=== PATIENT | male | born 1955 | race Caucasian/White ===

== ENCOUNTER 2024-03-07 20:40 | Inpatient (IN) | payer MEDICARE, OTHER, SELFPAY ==
[2024-03-07] VITALS (13 sets, daily range): BP systolic 88–192; BP diastolic 59–131; BMI 34.3; BMI 32.7
--- NOTE | 2024-03-07 17:18 | ED.PDOC.TRB ---
ED Provider Triage
-
Patient seen by provider in Triage?: Seen in Triage
A medical screening examination has been initiated by a qualified medical provider. Based on the assessment performed at this time, it has been determined that an emergent medical condition may exist and the patient has been informed that further
medical evaluation and possible additional diagnostic testing may be needed.
HPI: This is a medical evaluation conducted in person to initiate diagnostic evaluation and provide initial therapeutics. Please see further documentation by the treating clinician.
GENERAL: Alert , in no apparent distress
ENT: No visible abnormalities
LUNGS: No acute respiratory distress
NEUROLOGICAL: Alert and oriented
SKIN: Skin intact. No visible changes.
MUSCULOSKELETAL: Moving extremities normally
PSYCH: Normal and appropriate interaction.
68 y/o M
from PCP office
new onset afib
went to the PCP for exertional dyspnea and faituge
hsa seen dr. asencio previously but w/u has been unremarkable
today ekg in the pcp ioffice is afib
pt has no ches tpain but does have slith ST changes nonspecific
no pleuritic pain
has been having ongoing back pain that is being worked up by rheum
no h/o dvt/pe
will work up with labs, cxr, bnp, ekg
[2024-03-07 17:40] LABS: % Basophils 0.6 % (0-2); % Eosinophils 1.6 % (0-6); % Immature Granulocytes 0.4 % (0-0.5); % Monocytes 9.8 % (1.7-9.3); % Neutrophils 57.6 % (42.2-75.2); Absolute Basophils 0.1 10^3/uL (0-0.2); Absolute Eosinophils 0.2 10^3/uL (0-0.7); Absolute Immature Granulocytes 0.1 10^3/uL (0-0.05); Absolute Lymphocytes 4.2 10^3/uL (1.2-3.4); Absolute Monocytes 1.4 10^3/uL (0.1-0.6); Hematocrit 35.3 % (39.0-52.0); Mean Corp Hgb Conc. 36.8 g/dL (33.0-37.0); Mean Corpuscular Hgb 33.2 pg (27.0-31.0); Mean Corpuscular Volume 90.3 fL (80.0-94.0); Mean Platelet Volume 10.6 fL (7.4-10.4); Nucleated Red Blood Cells % 0 % (-); Platelet Count 358 10^3/uL (130-400); Red Blood Cell Count 3.91 10^6/uL (4.70-6.10); Red Cell Dist. Width 13.2 % (11.5-14.5)
[2024-03-07 17:53] LABS: INR 1.07; PT 13.9 Sec (11.4-14.6)
[2024-03-07 17:54] LABS: APTT 26.4 Sec (23.4-35.0)
[2024-03-07 17:57] LABS: ALT (SGPT) 33 U/L (0-50); AST (SGOT) 27 U/L (17-59); Albumin 4.1 g/dl (3.5-5.0); Alkaline Phosphatase 68 U/L (38-126); Blood Urea Nitrogen 20 mg/dl (9-20); Calcium 10.2 mg/dl (8.4-10.2); Carbon Dioxide 22 mmol/L (22-30); Chloride 104 mmol/L (98-107); Glucose 108 mg/dl (70-99); Magnesium 1.6 mg/dl (1.6-2.3); Potassium 3.3 mmol/L (3.5-5.1); Sodium 141 mmol/L (135-145); Total Bilirubin 0.7 mg/dl (0.2-1.3); Total Protein 6.5 g/dl (6.3-8.2); eGFR > 60.00
[2024-03-07 18:06] LABS: NT-proBNP 3000 pg/ml; Troponin I 0.033 ng/ml
--- NOTE | 2024-03-07 18:19 | ED.GENMED ---
History of Present Illness
General
Chief Complaint: Breathing Problem
Source: patient and spouse
Exam Limitations: none
Time Seen by Provider: 03/07/24 18:02
Nursing documentation reviewed up to this point in time: agreed with
History of Present Illness
History of Present Illness:
68-year-old male presents with shortness of breath fatigue dyspnea on exertion diaphoresis onset at least a week ago maybe longer, also having some sort of joint aches, had some blood work that showed inflammation scheduled to see rheumatology after
rheumatologic testing hypertension followed by Dr. Hoffman no CAD or CHF pulmonary physician is Dr. Lazo
Ex-smoker, social drinker
Past History
Past History
ED Past Medical History: HTN
ED Past Surgical History: Bowel resection
Social History
Tobacco: Former smoker
Alcohol: Occasional
Drug: None
Personal:
Living: with family
Employment: Retired
Review of Systems
Review of Systems
Other source history: family
All Other Systems: Not applicable
Constitutional: Denies fever or fatigue
Respiratory: Reports trouble breathing; Denies cough
Cardiac: Reports diaphoresis; Denies palpitations
ABD/GI: Reports no symptoms
: Reports no symptoms
Musculoskeletal: Reports no symptoms
Skin: Reports no symptoms
Neurological: Reports no symptoms
Endocrine: Reports no symptoms
Hematologic/Lymphatic: Reports no symptoms
Psychiatric: Reports no symptoms
Phy Exam
Physical Exam
Physical Exam:
Physical Exam
General: Tachypneic male
Neck: JVD
Heart: Tachycardic
Lungs: Faint crackle
Abdomen: Not
Neuro: alert and oriented. no focal neurological deficits
Skin: no rash
Psychiatric: well kept. interactive and cooperative
Extremities: 1+
Scores
Heart Failure Risk
Heart Failure Risk Score: Yes
History of Stroke or TIA: No
History of intubation for respiratory distress: No
Heart rate on ED arrival >/= 110: Yes
SaO2 <90% on arrival on room air: No
HR >/=110 during 3min walk test (or too ill to perform test): Yes
ECG has acute ischemic changes: No
Urea >/=12mmol/L (BUN 33.6mg/dL): No
Serum CO2>/=35mmol/L: No
Troponin I or T elevated to OR Level (0.4mg/dL): No
NT-proBNP >/=5,000ng/L (5,000pg/ml): No
HF Risk Score: 2
Admission Status: MEDIUM RISK 9.2% Consider observation or discharge to home with homecare & f/u visit to PCP/[employer], or SNF for treatment
Course
Orders/Labs/Results
Orders:
Orders
03/07/24 Dinner
Cholesterol Lowering
At Your Request: Full Participation
Cholesterol Lowering: Sodium, 2 Gram
03/07/24 17:19
Electrocardiogram (*1) Urgent
Reason for Study: Shortness of Breath
EKG- Treatment ONCE
03/07/24 17:33
Complete Blood Count/With Diff Urgent
Comprehensive Metabolic Panel Urgent
Magnesium Urgent
NT-proBNP Urgent
PTT Urgent
Prothrombin Time Urgent
TSH Reflex To Free T4 Urgent
Troponin I Urgent
03/07/24 18:04
CR Chest Portable - 1 View Urgent
Comment:
Reason For Exam: sob
Reason Study Needs to be Portable: Patient Unstable
03/07/24 18:25
Add On- LAB Urgent
Tests Added?: Magnesium
Diltiazem HCl [Cardizem] 10 mg IV NOW STA
Potassium Chloride [KCl] 40 meq PO NOW STA
03/07/24 18:26
Furosemide [Lasix] 40 mg IV NOW STA
03/07/24 18:30
Diltiazem 125 mg/125 ml Nss [Cardizem] 125 mg in 125 ml IV PER PROTOCOL
Initial dose in mg/hr, then titrate:: 5
Titrate to keep:: Heart rate 80-100 bpm
Titrate by mg/hr:: 5 mg/hr
Frequency of titrations (minutes):: 15
Maximum dose in mg/hr:: 15
03/07/24 19:35
Admit/Transfer Patient As Directed
Co-Sign Provider:
Level of Care: Inpatient admission
Assign to:: IVU
Physician / Group: Hospitalist
Diagnosis: AFIB RVR with new onset CHF
Reason for Hospitalization: AFIB RVR
Expected length of stay greater than two midnights?: Yes
ELOS- Estimated Length of Stay in days: 2
I certify the patient meets the requirements for IP care: Yes
PRN Pain Medication Management As Directed
May give lesser potent ordered pain med per pt: Yes
preference::
Protocol:: Medication orders for pain may be administered in a
manner that supports deferring to patient preference
when the pt is:
- Requesting an ordered lesser potent pain medication.
Least to most potent pain medications are defined
as: acetaminophen < NSAID < tramadol < opioids
(morphine, oxycodone, hydromorphone).
- Requesting a lesser dose of the same medication IF
ORDERED.
- Requesting a less intrusive route of administration
if both routes are prescribed by the provider (PO <
IV).
03/07/24 19:36
Code Status As Directed
Resuscitation Status: Full Code
03/07/24 20:00
Carvedilol [Coreg] 25 mg PO BID
03/07/24 20:57
Apixaban [Eliquis] 5 mg PO BID
Magnesium Sulfate 1 G/D5w [Magnesium Sulfate] 1 gm in 100 ml IV NOW
Potassium Chloride Powder [Klor-Con] 40 meq PO NOW STA
03/07/24 20:57
CARDIOLOGY CONSULT Routine
Consulting Provider: Davide Alvarenga
Was physician already notified: Yes
Reason for consult: afib RVR, new onset CHF
HF DIETARY CONSULT Routine
HF EDUCATOR CONSULT Routine
Comment:
VTE Contraindication Routine
VTE Mechanical Device Contraindication: Medical Contraindication
Pharmocologic Contraindication: Medical Contraindication
Activity As Directed
Activity Level: With Assistance
Intake/ Output As Directed
Frequency: Per unit guidelines
Patient Education As Directed
Type: CHF folder
Comment: give on admission. Document in Interdisciplinary Education record
Sleep Apnea Assessment by RN As Directed
Comment:
Physician Instructions:
Vital Signs As Directed
Frequency: Other
Additional Instructions:: Q12 or per unit guidelines if more frequent.
Weight As Directed
Frequency: Daily
Type of Scale: Standing Scale
Comment: Daily morning weight. If unable to stand, use balanced bed scale.
Weight As Directed
Frequency: Once
Type of Scale: Standing Scale
Comment: Upon Admission. If unable to stand, use balanced bed scale.
Pulse Ox/cont/shift [RESP] Routine
Quantity: 1
Special Instructions: Daily pulse oximetry at rest. If greater than 92% at rest also obtain pulse oximetry
while ambulating as tolerated.
03/07/24 22:00
Atorvastatin [Lipitor] 20 mg PO HS
03/08/24 06:00
Echo 2D MMode Color/Doppler IN AM
Reason for Study: heart failure
NPO
Allow oral meds: Yes
Allow clear liquids: Sips of Clears
Basic Metabolic Panel IN AM
Hemoglobin A1c [Glycohemoglobin (HgbA1c)] IN AM
Magnesium IN AM
03/08/24 08:00
Amlodipine [Norvasc] 10 mg PO DAILY
Furosemide [Lasix] 40 mg IV DAILY
Losartan [Cozaar] 100 mg PO DAILY
03/09/24 06:00
Basic Metabolic Panel IN AM
03/10/24 06:00
Basic Metabolic Panel IN AM
Abnormal Lab Results
03/07/24
17:33
WBC 14.0 H 10^3/uL
(4.8-10.8)
RBC 3.91 L 10^6/uL
(4.70-6.10)
Hct 35.3 L %
(39.0-52.0)
MCH 33.2 H pg
(27.0-31.0)
MPV 10.6 H fL
(7.4-10.4)
Abs Immat Gran (auto) 0.1 H 10^3/uL
(0-0.05)
Absolute Neuts (auto) 8.0 H 10^3/uL
(1.4-6.5)
Absolute Lymphs (auto) 4.2 H 10^3/uL
(1.2-3.4)
Absolute Monos (auto) 1.4 H 10^3/uL
(0.1-0.6)
Monocytes % 9.8 H %
(1.7-9.3)
Potassium 3.3 L mmol/L
(3.5-5.1)
Glucose 108 H mg/dl
(70-99)
03/07/24 17:33
03/07/24 17:33
Vital Signs
Initial and Last Documented VS:
Initial Vital Signs
Temp Pulse Resp BP Pulse Ox
98.2 F 68 20 118/73 99
03/07/24 17:14 03/07/24 17:14 03/07/24 17:14 03/07/24 17:14 03/07/24 17:14
Last Documented Vital Signs
Temp Pulse Resp BP Pulse Ox
97.7 F 133 26 177/92 93
03/07/24 21:00 03/07/24 21:03 03/07/24 21:03 03/07/24 21:03 03/07/24 21:55
MDM/Problems Addressed
Differential Diagnosis Includes:
Rapid A-fib heart failure pneumonia ACS PE
MDM/Problems Addressed:
Shortness of breath tachycardia
Chronic conditions affecting care: HTN and Asthma
Acute Exacerbation and/or Progression of Chronic Illness: HTN and Asthma
*Radiology
Radiology exam reviewed: preliminary read by ED provider
*Pulse Oximetry
Patient hypoxic: no
*EKG
Interpreted by ED Provider?: Yes
Interpretation: abnormal
Comparison EKG: no comparison EKG present
Heart Rate: 140
Rate: tachycardiac
Rhythm: sinus
Ischemia: non-specific ST changes
*Lead Software Engineer Interpretation
Rate: tachycardiac
Interpretation: normal
Heart Rate: 140
Rhythm: a-fib
*Critical Care Note
Total Time (30-74mins, 75-104mins- exclusive of procedures): 30
Update Note
Update Note:
Patient with rapid A-fib at least a week duration suspect he has some degree of volume overload plan be rate control consideration for diuretics likely will require anticoagulation
CRITICAL CARE STATEMENT: A total of 30 minutes of critical care time was provided for this patient. This includes management of unstable vital signs, evaluation of the patient at bedside, reviewing the patient's pertinent medical records discussion
with EMS providers and patient's family in addition to discussion with consultants, review of old EKGs and review of pertinent medical records. This time with separate from time utilized to perform the aforementioned documented procedures
ED Attending Note
-
Portions of this chart may have been created with voice recognition software.� Occasional wrong word or��sound alike� substitutions may have occurred due to the inherent limitations of voice recognition software.
Discharge Plan
Departure
Patient Disposition: Admit
Date of Disposition: 03/07/24
Time of Disposition: 19:08
Admit to: IVU
Presentation/result/management discussed w/ accepting MD/DO: Hospitalist
Patient with high blood pressure during this ER visit?: Yes
Condition: Fair
Discharge Problem:
Atrial fibrillation with RVR
Interventions
Interventions:
*Risk Screen - Suicide Last Done: 03/07/24 17:14
*General Assessment Last Done: 03/07/24 17:14
*Neglect/Abuse Screening Last Done: 03/07/24 17:14
ED- Fall Risk Assessment Last Done: 03/07/24 18:18
*ED COVID-19 Vaccine History Last Done: 03/07/24 21:56
*Nursing Disposition Last Done: 03/07/24 20:46
ED- Cardiac Assessment Last Done: 03/07/24 18:18
ED- Pulmonary Assessment Last Done: 03/07/24 18:18
Discharge Date and Time
Discharge Date/Time: 03/07/24 20:48
[2024-03-07] MEDS: KCL 40 MEQ PO (18:30)
[2024-03-07] MEDS: LASIX 40 MG IV (18:30)
[2024-03-07] MEDS: CARDIZEM 10 MG IV (18:30)
[2024-03-07] MEDS: CARDIZEM 125 IV (18:46)
--- NOTE | 2024-03-07 19:24 | HPS.HSE ---
Family Physician
-
Family Physician:
Chief Complaint
-
Dyspnea exertion and shortness of breath
History of Present Illness
This is a 68-year-old male with past medical history significant for hypertension, asthma, hyperlipidemia presenting to the emergency department with approximately 2 days of increasing dyspnea on exertion and shortness of breath.
Spouse actually reported that the patient has been having symptoms for several months now. She reports that his had increased abdominal bloating and increasing ankle edema for several weeks. Patient himself said that its only the last 4 to 5 days
that is felt dyspneic with his usual walking. He also feels some orthopnea when he lays down. He denies having any chest pain. He denies having any palpitations. He does report feeling slightly dizzy today. Patient denies any significant
changes in his medications recently. He denies any calf pain. He denies any fevers chills or sick contacts.
On arrival in the emergency department the patient was tachycardic to the 150s. He was found to be in atrial fibrillation. He was hypertensive with a blood pressure of 160/70. Was afebrile. Chest x-ray was clear. ECG shows atrial fibrillation
with a rate of 140 without any acute ischemic changes. His troponin was 0.03. His BNP was elevated at 3000. CBC was unremarkable. Chemistries notable for potassium of 3.3 and magnesium of 1.6 but is otherwise unremarkable. Patient had a prior
echo in 2022 which showed moderate left atrial dilation with ejection fraction of 70% and no obvious diastolic dysfunction. No valvular abnormalities at that time as well.
Medical History
Past Medical History
Past Medical History: Reports Asthma, HTN and Hypercholesterolemia
Past Surgical History: Reports None
Additional Past Surgical History:
Polypectomy
Social History
Tobacco: Former Smoker
Alcohol: Daily
Drug: None
Personal:
Living: With Family
Employment: Employed
Family History
Family History: Hypertension
Allergies / Home Medications
Allergies reflects when Allergies were last updated in [employer].
Home Medications with original date entered in [employer]
Allergy/Medication List:
Allergies
Allergy/AdvReac Type Severity Reaction Status Date / Time
No Known Allergies Allergy Verified 03/07/24 17:14
Home Medications
fluticasone propionate 110 mcg/actuation HFA aerosol inhaler (Flovent HFA) 1 puff inhalation R BID ##1 12/10/20
Review of Systems
-
History Source: Patient
Constitutional: Reports No Symptoms
EENT: Reports No Symptoms
Respiratory: Reports Trouble Breathing
Cardiac: Reports No Symptoms
Abdomen/GI: Reports No Symptoms
: Reports No Symptoms
Musculoskeletal: Reports Edema
Skin: Reports No Symptoms
Neurological: Reports No Symptoms
Endocrine: Reports No Symptoms
Hematologic/Lymphatic: Reports No Symptoms
Psych: Reports No Symptoms
Physical Exam
Vital Signs
Vital Signs
Temp Pulse Resp BP Pulse Ox
98.2 F 138 21 164/70 96
03/07/24 17:14 03/07/24 18:30 03/07/24 18:30 03/07/24 18:30 03/07/24 18:30
Physical Exam
General: No Apparent Distress and Comfortable
HEENT: NormoCephalic, Anicteric, Moist mucous membranes and PERRLA
Respiratory: Clear
Cardiac: S1/S2, Irregular Rhythm and Tachycardia
Breast: Deferred by me
GI: Soft, Non Tender, Non Distended and Normal Bowel Sounds
Rectal: Deferred by Provider
Genito-urinary: Deferred by me
Musculoskeletal: No Clubbing, No Cyanosis, Edema, Left Lower Extremity and Edema, Right Lower Extremity
Skin: Warm
Neuro: AO x 3
Hematologic/Lymphatic: No Lymphadenopathy
Psych: Calm
Laboratory Results
-
03/07/24 17:33
03/07/24 17:33
Laboratory Results
PT 13.9 Sec (11.4-14.6) 03/07/24 17:33
INR 1.07 03/07/24 17:33
APTT 26.4 Sec (23.4-35.0) 03/07/24 17:33
Total Bilirubin 0.7 mg/dl (0.2-1.3) 03/07/24 17:33
AST 27 U/L (17-59) 03/07/24 17:33
ALT 33 U/L (0-50) 03/07/24 17:33
Alkaline Phosphatase 68 U/L (38-126) 03/07/24 17:33
Troponin I 0.033 ng/ml 03/07/24 17:33
Data Reviewed
-
Diagnostic Radiology: Image Personally Visualized and interpreted
Medical Tests (Nuc Med, Echo, EKG etc): Image Personally Visualized and interpreted
Lab Data: Labs Reviewed by me
Old Records: Reviewed
Impression/Plan
-
IMPRESSION:
PLAN:
1. AFIB RVR - New onset AFIB RVR. Duration likely > 48 hours and associated with new clinical CHF. Hemodynamically stable. No cardiac ischemia. Currently on diltiazem with rates in the 140s.
- admit to IVU
- continue diltiazem gtt for now
- continue coreg 25mg po bid
- echo in am
- check tsh
- cardiology consult (Pt of Dr. Hoffman)
- keep K, Mag > 4/2
- CHADS2 > 3, start eliquis 5mg
- npo after midnight incase LOBO for possible cardioversion tomorrow.
2. CHF - Mild CHF possibly rate related. BNP 3000. Peripheral edema.
- lasix 40mg iv daily for now
- already on arb
3. HTN
- continue carvedilol and losartan
- continue statin
4. Hyperglycemia - family reports elevated blood glucose at home but no dgx of DM
- check a1c
DVT PPX - on eliquis
Full Code
[2024-03-07 20:17] LABS: TSH Reflex To Free T4 2.07 uIU/ml (0.47-4.68)
[2024-03-07] MEDS: COREG 25 MG PO (20:30)
[2024-03-07] MEDS: LIPITOR 20 MG PO (20:31)
--- NOTE | 2024-03-07 21:00 | PTCARENOTE ---
Patient arrived to room 3353 on 15mg cardizem gtt. Oriented to room and use of call perales. Tele applied showing Afib HR 140-150s. Pt reports feeling shoulder tightness but denies chest pain. reports sob has improved slightly. urinal and tray table at
bedside.
[2024-03-07] MEDS: ELIQUIS 5 MG PO (21:27)
[2024-03-07] MEDS: KLOR-CON 40 MEQ PO (21:27)
[2024-03-07] MEDS: MAGNESIUM SULFATE 100 IV (21:29)
--- NOTE | 2024-03-07 23:42 | PTCARENOTE ---
Report given to JUSTO Smith.
[2024-03-08] VITALS (21 sets, daily range): BP systolic 84–137; BP diastolic 53–99; BMI 32.6
--- NOTE | 2024-03-08 04:05 | PTCARENOTE ---
Patient received in bed, AAOX3, offers no complaints. Afib in 130s-140s on monitor, blood pressure soft, Cardizem gtt infusing at 10 mg/hr. Lungs clear. Abdomen round with positive bowel sounds. Voiding yellow urine. Call perales within reach
[2024-03-08] MEDS: CARDIZEM 125 IV (05:26)
[2024-03-08 06:08] LABS: Blood Urea Nitrogen 16 mg/dl (9-20); Calcium 9.2 mg/dl (8.4-10.2); Carbon Dioxide 20 mmol/L (22-30); Chloride 106 mmol/L (98-107); Estimated Creatinine Clearance 111 ml/min; Glucose 127 mg/dl (70-99); Magnesium 1.6 mg/dl (1.6-2.3); Potassium 3.4 mmol/L (3.5-5.1); Sodium 144 mmol/L (135-145); eGFR > 60.00
--- NOTE | 2024-03-08 07:47 | PTCARENOTE ---
Patient NPO over night. Cardizem currently at 15mg/15 mls via left AC. Cardiology in room with patient awaiting orders.
--- NOTE | 2024-03-08 07:54 | W.PN.HOSP.TC ---
Today's Communication/Plan
-
see A/P
Assessment / Plan
Assessment / Plan
HPI: 68-year-old male with past medical history significant for hypertension, asthma, hyperlipidemia; p/w approximately 2 days of increasing dyspnea on exertion and shortness of breath.
Spouse actually reported that the patient has been having symptoms for several months. She reports that he had increased abdominal bloating and increasing ankle edema for several weeks. Patient himself said that its only the last 4 to 5 days that
is felt dyspneic with his usual walking. He also feels some orthopnea when he lays down. He denies having any chest pain. He denies having any palpitations. He does report feeling slightly dizzy. Patient denies any significant changes in his
medications recently.
On arrival in the emergency department the patient was tachycardic to the 150s. He was found to be in atrial fibrillation. He was hypertensive with a blood pressure of 160/70. Was afebrile. Chest x-ray was clear. ECG shows atrial fibrillation
with a rate of 140 without any acute ischemic changes. His troponin was 0.03. His BNP was elevated at 3000. CBC was unremarkable. Chemistries notable for potassium of 3.3 and magnesium of 1.6 but is otherwise unremarkable. Patient had a prior
echo in 2022 which showed moderate left atrial dilation with ejection fraction of 70% and no obvious diastolic dysfunction. No valvular abnormalities at that time as well.
A/P:
# New onset AFIB RVR.
Hemodynamically stable. No cardiac ischemia.
Cont diltiazem drip for now
Continue PULP AND PAPER TESTER coreg 25mg po bid with hold parameter
Check Echo
TSH 2.07
Cardiology consult (Pt of Dr. Hoffman)
CHADS2 > 3, started eliquis 5mg
NPO for now until lifted by card
# Suspect A fib associated acute new CHF.
BNP 3000. Peripheral edema.
lasix 40mg iv daily for now
Cont PULP AND PAPER TESTER Coreg with hold parameter
PULP AND PAPER TESTER Losartan on hold
echo
# HTN
Cont PULP AND PAPER TESTER Coreg with hold parameter
PULP AND PAPER TESTER Losartan on hold
Currently Cardizem drip
# Hyperglycemia - family reports elevated blood glucose at home but no dgx of DM
Follow A1C
# Hypokalemia
replete lyte
DVT PPX - on Eliquis
Full Code
DW RN
Anticipated Discharge: > 48 hours
Subjective/Interval History
-
Date of Service: March 08, 2024
Objective Data
-
Labs:
Laboratory Results
03/08/24
05:25
Sodium 144
Potassium 3.4 L
Chloride 106
Carbon Dioxide 20 L
BUN 16
Creatinine 0.7
Glucose 127 H
Calcium 9.2
Vital Signs:
Vital Signs
Temp Pulse Resp BP Pulse Ox
36.7 C 147 18 102/78 93
03/08/24 04:54 03/08/24 06:00 03/08/24 06:00 03/08/24 06:00 03/07/24 21:55
I&O
03/07/24 03/08/24 03/09/24
06:59 06:59 06:59
Intake Total 100 / 100
Output Total 950 / 950 300 / 300
Balance -850 / -850 -300 / -300
Review of Systems
-
Respiratory: Reports Trouble Breathing
Physical Exam
-
General: Well Developed, Well Nourished, No Apparent Distress, Comfortable and Conversant; Negative Respiratory Distress
HEENT: Normocephalic, Atraumatic, Nose Appears Normal and Ears Appear Normal; Negative Oxygen
Respiratory: Clear to Auscultation and Non Labored Respirations; Negative Accessory Resp Muscle Use
Cardiac: S1/S2, Irregular Rhythm and Tachycardic
GI: Soft, Nontender, Nondistended and Normal Bowel Sounds
Skin: Warm and Dry
Neuro: Awake, Alert, Oriented and AO x 3
Psych: Calm and Intact Judgement/Insight
Data Reviewed
-
Labs: Labs Reviewed by me
--- NOTE | 2024-03-08 08:00 | CON.CAR ---
Addendum entered and electronically signed by Davide Alvarenga MD 03/08/24 08:31:
Note patient was recently treated for sinus infection and was still on prednisone. Would have been on prednisone 10 mg a day. Will resume. Would refer to both primary team and his outpatient physician regarding full taper of prednisone.
Original Note:
Consultation
Consultation Request
Date/Time Consultation Requested: 03/08/2024
Date/Time Consultation Performed:
Requesting Provider: Hospitalist
Performing Provider: Dr. Alvarenga
Reason for Consultation: New onset A-fib
Medical History
-
History of Present Illness:
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
68-year-old male with history of multidrug hypertension who has had exertional shortness of breath over the last 2 days patient seen in PCP office and noted to be in A-fib with RVR and sent to the emergency department. Patient states that he was
recently treated for a sinus infection completed a course of antibiotics and was on prednisone at 10 mg a day (he did not take his prednisone yesterday or today). Sinus infection has resolved. He was feeling fine until day before yesterday when he
felt like he was a bit more short of breath going up stairs. No shortness of breath at rest no orthopnea lower extremity edema no chest pain no palpitations or heart racing. He has a history of multidrug hypertension and says his blood pressure is
stable he says normally his pulse rate is fine when he checks his pressures. He did not note an elevated heart rate on his blood pressure monitor yesterday but it was noted when he had an ECG at his PCP office.
He has a prior history of smoking and reports that he has a component of asthma
No other lung problems.
No prior history of cardiac disease.
He has a history of hypertension and hypercholesterolemia. No prior history of heart failure, diabetes, CVA, PAD, CAD
No fever cough or respiratory symptoms.
Patient admitted by hospitalist. He was continued on his outpatient Coreg dose and he is placed on IV Cardizem for rate control. He did receive 1 dose of IV Lasix due to question of CHF
Data
chest x-ray 03/27 no acute abnormality.
Labs proBNP 3000 hemoglobin 13 WBC 14 platelets 358 potassiumPotassium 3.4 3.4 bicarbonate 20 glucose 127 creatinine 0.7
Echocardiogram 11/19/2022 normal left ventricular function ejection fraction 70% moderate left atrial dilation no significant valve abnormalities
Past Medical History
Past Medical History: Other (Past medical history multidrug hypertension, asthma, prior history of smoking)
Social History
Tobacco: Former Smoker
Family History
Family History: Other (Negative premature CAD)
Allergies / Home Medications
Allergy/AdvReac Type Severity Reaction Status Date / Time
No Known Allergies Allergy Verified 03/07/24 17:14
�Medication �Instructions �Recorded �Confirmed �Type
amlodipine 10 mg tablet 10 mg PO DAILY 03/07/24 03/07/24 History
aspirin 81 mg chewable tablet 81 mg PO HS 03/07/24 03/07/24 History
atorvastatin 20 mg tablet 20 mg PO HS 03/07/24 03/07/24 History
carvedilol 25 mg tablet 25 mg PO BID 03/07/24 03/07/24 History
losartan 100 1 tab PO DAILY 03/07/24 03/07/24 History
mg-hydrochlorothiazide 25 mg tablet
therapeutic multivitamin 1 tab PO DAILY 03/07/24 03/07/24 History
Review of Systems
-
All other systems: Negative unless noted
Physical Exam
Vital Signs
Temp Pulse Resp BP Pulse Ox
98.1 F 147 18 102/78 93
03/08/24 04:54 03/08/24 06:00 03/08/24 06:00 03/08/24 06:00 03/07/24 21:55
Lab Results
03/07/24 17:33
03/08/24 05:25
Troponin I 0.033 ng/ml 03/07/24 17:33
Utx-V-Ahxvgfckcih Pept 3000 pg/ml 03/07/24 17:33
Physical Exam
General: Well Developed, Well Nourished and No Apparent Distress
HEENT: Normocephalic, Anicteric and Other (Ejection out movements are intact external ear and oral exam unremarkable)
Respiratory: Other (Rare crackle at base)
Cardiac: Irregular Rhythm (Tachycardic.)
GI: Soft, Non Tender and Other (Mildly distended but soft no masses detected no hepatosplenomegaly)
Musculoskeletal: No Clubbing, No Cyanosis and No Edema
Skin: Warm, Dry and Rash (No rash)
Neuro: Awake, Alert, Oriented and AO x 3
Hematologic/Lymphatic: No Lymphadenopathy
Psych: Calm
Impression / Plan
-
A-fib with RVR
-New onset
-Exact duration unknown. Suspect based on symptoms that he has been in A-fib for the last 2 to 3 days
-CHADSVASC -at least 2 based on age greater than 65 and history of hypertension
-Continue Coreg
-Rate control is suboptimal despite IV Cardizem
-Continue IV Cardizem
-Additional bolus of IV Cardizem this morning
-Keep n.p.o.
-Plan for LOBO cardioversion
.
Shortness of breath.
-Comfortable at rest with no shortness of breath on room air
-Shortness of breath with exertion likely related to A-fib with RVR. Patient also did receive some diuretic in ER for possible component of heart failure.
-Continue treatment of A-fib
-Echo
.
Hypertension
-Multidrug hypertension.
-Hypertensive in the ER but blood pressure has improved on current therapy.
-Stop amlodipine with use of Cardizem
-Hold losartan as we give additional rate control drugs. If additional blood pressure control required then losartan can be reinitiated today but may need to reduce the dose
Data Reviewed
-
EKG: Tracing Personally Visualized and interpreted and Report Reviewed by me
Medical Tests (Nuc Med, Echo etc): Report Reviewed by me
Labs: Labs Reviewed by me
[2024-03-08] MEDS: CARDIZEM 10 MG IV (08:21)
[2024-03-08] MEDS: COREG 25 MG PO ×2 (08:22→19:53)
[2024-03-08] MEDS: ELIQUIS 5 MG PO ×2 (08:22→19:53)
[2024-03-08] MEDS: MAGNESIUM SULFATE 102 GRAMS IV (08:49)
[2024-03-08 09:18] LABS: Glycohemoglobin (HgbA1c) 6.6 % (4.0-5.6)
[2024-03-08] MEDS: KCL 270 MEQ IV (09:50)
[2024-03-08] MEDS: DELTASONE 10 MG PO (09:50)
--- NOTE | 2024-03-08 11:32 | ITS.CL.CARDI ---
Compensation Business Partner - Cardioversion
Cardioversion
Procedure Report:
Date of Procedure:
Procedure: Cardioversion
Indication: Symptomatic atrial fibrillation
Performing Physician: Jovanni Faustin MD
Technique: The patient was brought to the holding area. Signed informed consent was obtained. A time out was called and performed. The patient was anesthetized by the anesthesia service. Anticoagulation status was reviewed and appropriate. R2 pads
were placed anteriorly and posteriorly. After LOBO revealed no LA thrombus, a 200 J synchronized biphasic shock restored normal sinus rhythm without significant bradycardia. There were no complications.
Conclusion: Uncomplicated cardioversion from atrial fibrillation to sinus rhythm.
Recommendation: Routine post cardioversion care. Continue retirement anticoagulation.
[2024-03-08] MEDS: LASIX 40 MG IV (16:45)
[2024-03-08] MEDS: LIPITOR 20 MG PO (19:53)
[2024-03-08] MEDS: KCL 40 MEQ PO (19:53)
--- NOTE | 2024-03-08 20:00 | PTCARENOTE ---
Patient received in bed, AAOx3. NSR on monitor, Trace lower extremity edema noted. Lungs diminished, on room air. Abdomen round, good appetite. Voiding. #20 g in LAC and #20 LFA flushed and patent.
[2024-03-09 05:11] VITALS: BP 142/78
[2024-03-09 05:14] VITALS: BMI 32.7
[2024-03-09 06:18] LABS: Blood Urea Nitrogen 21 mg/dl (9-20); Calcium 9.1 mg/dl (8.4-10.2); Carbon Dioxide 23 mmol/L (22-30); Chloride 105 mmol/L (98-107); Estimated Creatinine Clearance 97 ml/min; Glucose 133 mg/dl (70-99); Magnesium 1.7 mg/dl (1.6-2.3); Potassium 3.6 mmol/L (3.5-5.1); Sodium 141 mmol/L (135-145); eGFR > 60.00
[2024-03-09 06:19] LABS: Hematocrit 33.3 % (39.0-52.0); Mean Corpuscular Volume 94.3 fL (80.0-94.0); Mean Platelet Volume 10.5 fL (7.4-10.4); Platelet Count 281 10^3/uL (130-400); Red Blood Cell Count 3.53 10^6/uL (4.70-6.10); Red Cell Dist. Width 13.2 % (11.5-14.5); White Blood Cell Count 12.8 10^3/uL (4.8-10.8)
--- NOTE | 2024-03-09 07:44 | W.PN.HOSP.TC ---
Addendum entered and electronically signed by Soha Young MD 03/09/24 12:06:
total DC time 36 min
Original Note:
Today's Communication/Plan
-
see A/P
Assessment / Plan
Assessment / Plan
HPI: 68-year-old male with past medical history significant for hypertension, asthma, hyperlipidemia; p/w approximately 2 days of increasing dyspnea on exertion and shortness of breath.
Spouse actually reported that the patient has been having symptoms for several months. She reports that he had increased abdominal bloating and increasing ankle edema for several weeks. Patient himself said that its only the last 4 to 5 days that
is felt dyspneic with his usual walking. He also feels some orthopnea when he lays down. He denies having any chest pain. He denies having any palpitations. He does report feeling slightly dizzy. Patient denies any significant changes in his
medications recently.
On arrival in the emergency department the patient was tachycardic to the 150s. He was found to be in atrial fibrillation. He was hypertensive with a blood pressure of 160/70. Was afebrile. Chest x-ray was clear. ECG shows atrial fibrillation
with a rate of 140 without any acute ischemic changes. His troponin was 0.03. His BNP was elevated at 3000. CBC was unremarkable. Chemistries notable for potassium of 3.3 and magnesium of 1.6 but is otherwise unremarkable. Patient had a prior
echo in 2022 which showed moderate left atrial dilation with ejection fraction of 70% and no obvious diastolic dysfunction. No valvular abnormalities at that time as well.
A/P:
# New onset AFIB RVR.
Hemodynamically stable. No cardiac ischemia.
s/p diltiazem drip
s/p LOBO cardioversion 03/08 with successful conversion to NSR
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
TSH 2.07
CHADS2 > 3, continue newly added Eliquis 5mg BID
# Suspect A fib associated acute new CHF.
BNP 3000. Peripheral edema.
Off further IV Lasix
Cont OYSTER UNLOADER Coreg with hold parameter
Off OYSTER UNLOADER Losartan
# HTN
BP controlled with Coreg
# Hyperglycemia - family reports elevated blood glucose at home but no dgx of DM
A1C 6.6%
recc lifestyle modification
# Hypokalemia
repleted lyte
# recently treated for sinus infection with prednisone (per pt, he was prescribed a 90 day supply of prednisone by his PCP)
# Mild leucocytosis likely due to steroid
Cont Prednisone 10 mg daily until further directed by his PCP
DVT PPX - on Eliquis
Full Code
DW RN
DW Card
Anticipated Discharge: Today
Subjective/Interval History
-
Date of Service: March 09, 2024
Objective Data
-
Labs:
Laboratory Results
03/09/24
05:45
WBC 12.8 H
Hgb 12.0 L
Hct 33.3 L
Plt Count 281 D
Sodium 141
Potassium 3.6
Chloride 105
Carbon Dioxide 23
BUN 21 H
Creatinine 0.8
Glucose 133 H
Calcium 9.1
Vital Signs:
Vital Signs
Temp Pulse Resp BP Pulse Ox
36.8 C 70 17 142/78 92
03/09/24 05:11 03/09/24 05:11 03/09/24 05:11 03/09/24 05:11 03/09/24 05:11
I&O
03/08/24 03/09/24 03/10/24
06:59 06:59 06:59
Intake Total 100 / 100 1263 / 1263
Output Total 950 / 950 2400 / 2400
Balance -850 / -850 -1137 / -1137
Review of Systems
-
All other systems: Reviewed and negative
Physical Exam
-
General: Well Developed, Well Nourished, No Apparent Distress, Comfortable and Conversant; Negative Respiratory Distress
HEENT: Normocephalic, Atraumatic, Nose Appears Normal and Ears Appear Normal; Negative Oxygen
Respiratory: Clear to Auscultation and Non Labored Respirations; Negative Accessory Resp Muscle Use
Cardiac: Regular Rhythm and S1/S2
GI: Soft, Nontender, Nondistended and Normal Bowel Sounds
Skin: Warm and Dry
Neuro: Awake, Alert, Oriented and AO x 3
Psych: Calm and Intact Judgement/Insight
Data Reviewed
-
Labs: Labs Reviewed by me
[2024-03-09 07:46] VITALS: BP 137/71
[2024-03-09] MEDS: COREG 25 MG PO (07:49)
[2024-03-09] MEDS: DELTASONE 10 MG PO (07:49)
[2024-03-09] MEDS: ELIQUIS 5 MG PO (07:49)
[2024-03-09] MEDS: KCL 40 MEQ PO (08:35)
--- NOTE | 2024-03-09 09:03 | W.PN.CD ---
Today's Communication / Plan
-
stable and remains in NSR post LOBO/CV
Ambulate in hallway this morning to see that his breathing is returned to baseline
Continue Eliquis 5mg BID
continue Coreg
-Stop amlodipine
- start Cardizem 120mg a day
- monitor blood pressures and as BP increases can resume losartan at lower dose.
Impression / Plan
-
A-fib with RVR
-New onset
-Exact duration unknown. Suspect based on symptoms that he has been in A-fib for the last 2 to 3 days
-CHADSVASC -at least 2 based on age greater than 65 and history of hypertension
-successful LOBO cardioversion 03/08/24
.
Shortness of breath.
-Denies shortness of breath. Ambulated ambulate this morning to see that his breathing has returned to baseline.
-Suspect he had a component of shortness of breath related to rapid rates of A-fib but also a component of HFpEF related to rapid A-fib
- will plan for outpatient stress testing
.
Hypertension
-Multidrug hypertension.
-Hypertensive in the ER but blood pressure has improved on current therapy.
-Stopped amlodipine
- start Cardizem 120mg a day
- monitor blood prressures and as BP increases can resume losartan
Physical Exam
Vital Signs/Labs
Vital Signs
Temp Pulse Resp BP Pulse Ox
98.0 F 68 17 137/71 92
03/09/24 07:40 03/09/24 07:49 03/09/24 05:11 03/09/24 07:49 03/09/24 05:11
03/08/24 03/09/24 03/10/24
06:59 06:59 06:59
Actual Weight 97.3 kg 97.6 kg
03/09/24 05:45
03/09/24 05:45
PT 13.9 Sec (11.4-14.6) 03/07/24 17:33
INR 1.07 03/07/24 17:33
APTT 26.4 Sec (23.4-35.0) 03/07/24 17:33
Magnesium 1.7 mg/dl (1.6-2.3) 03/09/24 05:45
03/07/24
17:33
Xgt-D-Dcvhdcfzyvk Pept 3000
LAB Results
03/07/24
17:33
Troponin I 0.033
Physical Exam
Constitutional: No acute distress
Cardiovascular: Rhythm & rate is regular
Respiratory: Respiratory effort normal
GI: Distention absent and Normal bowel sounds
Neuro/Psych: Alert, Oriented and AO x 3
Data Reviewed
-
Date of Service: March 09, 2024
Medical Decision Making: Reviewed Test Results
Echo: Report Reviewed by me
Medical Tests (PFT, Pathology etc): Report Reviewed by me
Labs: Labs Reviewed by me
--- NOTE | 2024-03-09 09:23 | CM ---
Patient with Dx Afib with RVR who is s/p cardioversion.
Met with patient who resides with his in a 2 story house.
The patient has been independent in ADLs and ambulation.
He is active and drives.
The patient has no DME, prior VN or SNF.
PCP - Lily Hayward
Pharmacy - [facility]
VN order noted- offered VN and patient declined.
The patient says he feels ready for d/c today. IMM completed. His will provide transport home today.
No CM d/c needs identified.
Plan home today.
[2024-03-09] MEDS: CARDIZEM CD 120 MG PO (09:49)
[2024-03-09 09:50] VITALS: BP 119/70
--- NOTE | 2024-03-09 10:38 | W.HF.CON ---
Heart Failure
- LV Function
Left ventricular function study result: LV Ejection fraction >40%
Ejection Fraction Percentage: 55
- ARNI
Patient already on ARNI: No
Heart Failure ARNI Not Indicated: LV Ejection Fraction >/= 40%
- Beta Susu
Patient already on Evidence Based Beta Susu: Yes
- Mineralocorticord Receptor Antagonist
Patient already on MRA: No
Heart Failure MRA Not Indicated: LV Ejection Fraction > 40%
- SGLT-2 Inhibitor
Patient already on SGLT-2 Inhibitor: No
Heart Failure SGLT-2 Inhibitor Not Indicated: LV Ejection Fraction >40%
- Afib Anticoagulation
Patient already on Anticoagulation for Afib: Yes
- NYHA CHF Classification
NYHA CHF Classification Level: Class III - Symptoms w/ min exertion, interferes w/ nml daily activity
- ACC/AHA Stage
ACC/AHA Stage: Stage C: Symptomatic Heart Failure
--- NOTE | 2024-03-09 11:02 | W.DCSUMMARY ---
Discharge Summary
Discharge Data
Date of Admission: 03/07/24
Date of Discharge: 03/09/24
-
Pending Results: No
Hospital Course
Principal Diagnosis:
New onset atrial fibrillation with rapid ventricular rate.
Mild atrial fibrillation associated heart failure
Chronic Diagnoses:�
Hypertension
asthma
Hyperlipidemia
Recent sinus infection on prednisone
Consultations:�
Cardiology
Procedures:�
LOBO with cardioversion 03/08 with successful conversion to NSR
Clinical course:�
This is a 68-year-old male with past medical history as stated above, who presented with shortness of breath and dyspnea on exertion.
He was noted to be in A-fib RVR on admission.
Problem 1:
New onset atrial fibrillation with rapid ventricular rate.
Patient was hemodynamically stable.
Cardizem drip was initially started which was later discontinued.
He underwent LOBO/cardioversion on 03 08 which successfully converted him to normal sinus rhythm.
He can continue with his prior to admission Coreg at 25 mg twice daily.
Cardizem 120 mg daily was added this admission which he can continue going forward.
His prior to admission losartan was discontinued.
He was started with Eliquis 5 mg twice daily which she can also continue going forward.
Problem 2:
Suspect A fib associated mild CHF.
BNP 3000.
He received IV Lasix very briefly.
As for the rest of his medical problems, they were stable during his hospital stay.
Discharge Plan
-
Patient Disposition: Home with Home Care
Discharge Diagnosis/Procedures: New onset atrial fibrillation status post LOBO and cardioversion 03/08 with successful conversion to normal sinus rhythm.
Condition: Good
Diet: As tolerated, Low Fat, Low Cholesterol and Low Sodium
Activity: As tolerated
Driving Restrictions: As prior to admission
Blood Work: follow up with your PCP for blood pressure management
Specialty Instructions: Weigh Daily- Call MD for wt gain/loss 3 lbs overnight/5 lbs in 1 week
Instructions: *CBC Heart Failure Instructions
Referrals:
Lily Hayward MD [Family Provider] - in less than 1 week
Additional Discharge Medication Instructions: You were started with Cardizem 120 mg daily.
You were started with Eliquis (blood thinner) at 5 mg twice daily.
Stop Aspirin while on Eliquis.
Stop losartan-HCTZ
Stop amlodipine
Prescriptions:
New
prednisone 10 mg Tablet
10 mg PO DAILY Qty: 30 0RF
Eliquis 5 mg Tablet
5 mg PO BID Qty: 60 0RF
diltiazem HCl 120 mg Capsule,Extended Release 24hr
120 mg PO DAILY Qty: 30 0RF
Continued
carvedilol 25 mg Tablet
25 mg PO BID
atorvastatin 20 mg Tablet
20 mg PO HS
therapeutic multivitamin Tablet
1 tab PO DAILY
Discontinued
losartan-hydrochlorothiazide 100-25 mg Tablet
1 tab PO DAILY
amlodipine 10 mg Tablet
10 mg PO DAILY
aspirin 81 mg Tablet,Chewable
81 mg PO HS
Discharge Orders:
Discharge Patient (As Directed); Ordered 03/09/24
Ordered By: Soha Young
Discharge Date and Time
Print Language: AUSTRIAN
[2024-03-09 12:09] VITALS: BP 132/74
== END 2024-03-09 14:40 | disposition home or self-care (01) | DRG 291 ==
LOC: IMU 20:40
PROVIDERS: Internal Medicine Cardiovascular Disease; Physician Assistant; ADMITTING PHYSICIAN Internal Medicine; ATTENDING PHYSICIAN Internal Medicine; CONSULT PHYSICIAN Internal Medicine Cardiovascular Disease; EMERGENCY PHYSICIAN Emergency Medicine; FAMILY PHYSICIAN Internal Medicine
PROC: B24BZZ4 Ultrasonography of Heart with Aorta, Transesophageal (ICD-10-PCS; 2024-03-08)
PROC: 5A2204Z Restoration of Cardiac Rhythm, Single (ICD-10-PCS; 2024-03-08)
DX: I11.0 Hypertensive heart disease with heart failure (principal); I50.31 Acute diastolic (congestive) heart failure; I48.91 Unspecified atrial fibrillation; Z87.891 Personal history of nicotine dependence; J45.909 Unspecified asthma, uncomplicated; E87.6 Hypokalemia
CPT/HCPCS: 71045; 80048; 80053; 83036; 83735; 83880; 84443; 84484; 85025; 85027; 85610; 85730; 92960; 93005; 93312; 93320; 93325; 96365; 96366; 96375; 99291

== ENCOUNTER 2024-04-12 07:35 | Day surgery (SDC) | payer MEDICARE, OTHER, SELFPAY ==
[2024-04-03 08:02] VITALS: BMI 32.7
[2024-04-12] VITALS (17 sets, daily range): BP systolic 148–176; BP diastolic 74–85; BMI 31.9
[2024-04-12 08:45] LABS: Glucose - Point of Care 128 mg/dl (70-99)
--- NOTE | 2024-04-12 13:48 | ITS.CL.ABL ---
Special Loan Officer - Ablation
Ablation
Procedure Report:
AFIB ablation:
Mr. Canales is a very pleasant 68 yr old gentleman with symptomatic paroxysmal AF, is recommended for atrial fibrillation ablation.
Date of the Procedure:
04/12/2024
Indications:
Paroxysmal atrial fibrillation
Pre-Operative Diagnosis:
Paroxysmal atrial fibrillation
Post-Operative Diagnosis:
Paroxysmal atrial fibrillation
Procedure Performed:
Atrial fibrillation ablation with Pulsed-Field approach for pulmonary vein isolation
Performing Physician:
Andrea Guerrero MD
Assistants:
EP staff
Anesthesia:
See anesthesia records
Detailed Description of the Procedure:
Written informed consent was obtained from the patient after a full explanation of the risks and benefits of the procedure including the risks of sedation and anesthesia.
The patient was brought to the electrophysiology laboratory in stable condition in fasting state. Continuous electrocardiographic and hemodynamic monitoring was initiated.
The initial rhythm was sinus.
The procedure site was meticulously prepared with surgical scrub and allowed to dry with no pooling. Sterile draping was applied to cover the procedure site. The image intensifier was draped with sterile bag and positioned over the patient. After
infusion of local anesthetic, vascular access was obtained under ultrasound guidance and sheaths were placed over guide wire as detailed below.
Sheath and Catheter Placement:
The following catheters / sheaths were placed
Sheaths:
��������� 17Fr steerable sheath ([employer]�, [employer]) in right femoral
��������� 10Fr in right femoral vein
��������� 7Fr in right femoral vein
Catheters:
��������� RAMON HD Grid mapping catheter � at locations of RA, LA
��������� Farawave� PFA catheter
��������� ICE catheter �Delgado ViewFlex - at locations of RA, SVC, and RV.
��������� Decapolar Bard catheter in RA and CS
Intracardiac ECHO:
An 8-[place] AcuNav intracardiac ECHO (ICE) probe was advanced through the 9-[place] sheath in the right femoral vein into the right atrium under fluoroscopic and ICE ultrasound image guidance and a baseline ECHO study was performed. The left atrial
size was normal. There was moderate tricuspid regurgitation. The aortic valve was grossly normal. There was normal left ventricular systolic functions. There is no pericardial effusion. All the four veins were identified and has flow identified.
There was good flow noted in the JOHN PAUL.
During the procedure, ICE was used for monitoring of complications, guidance of trans-septal puncture, monitor the catheter position and tracking ablation lesions. No change in the pericardial space noted throughout the procedure.
Trans-septal Puncture:
Heparin was initiated and infused to maintain appropriate ACT. A pigtail guidewire was advanced through the 8-[place] sheath in the right femoral vein into the superior vena cava under fluoroscopic and ICE guidance. The 9-[place] sheath was exchanged
for a Faradrive sheath which was advanced into the superior vena cava. A transseptal RF pigtail via Faradrive connect system was utilized to perform the trans-septal puncture. The apparatus was withdrawn until it was in contact with the fossa
ovalis. The position was adjusted based on fluoroscopy and ultrasound images from ICE. Under fluoroscopic, hemodynamic and ICE ultrasound guidance, left atrium was cannulated by applying RF energy. Once atrial septum was cannulated, the pigtail wire
was advanced through the needle into the left atrium. The guide wire was advanced into the left superior pulmonary vein. Both the sheath and the dilator was advanced into the left atrium. The dilator with the needle was withdrawn. Blood was
aspirated from the Faradrive sheath and arterial blood confirmed. The sheath was flushed. Saline injection noted into the left atrium on ICE. The mapping catheter was advanced in the sheath into the left pulmonary vein. Left atrial pressure was
measured.
3D Electroanatomic Mapping:
Using the HD Grid catheter advanced through sheath into the left atrium, an electroanatomic map (EAM) of the left atrium was created using Scan•Jour mapping system. The map was used for localization of catheter position and tacking of ablation
lesions.
The EAM of the left atrium showed 4 pulmonary veins with all 4 veins electrically connected to the body the LA. It showed normal voltage on the posterior and anterior wall of the LA. The LA was mildly dilated in size.
Following the EAM, preparation were made for ablation.
Ablation:
Ablation # 1: Pulmonary vein Isolation:
Glycopyrrolate 0.2 mg was given prior to the placement of ablation. Using [employer] pulsed wave ablation system, pulmonary vein isolation was achieved. First the ablation catheter was placed in the LSPV and ostial ablation lesions were performed in a
counter clock randall approach all around the PV ostium circumferentially. Then the catheter was placed on the antral location and multiple ablation lesions were placed circumferentially on the antrum of the vein.
In the similar fashion, the LIPV were isolated.
Then the catheter was moved to right sided veins. The ostial and antral ablations were placed as noted above.
EPS and Confirmation of the PVI and bidirectional block:
Following achievement of entrance block at the pulmonary veins, pacing from the HD catheter in each of the four veins at 10 milliamps for 2 milliseconds showed entrance and exit block. All PVI were rechecked at the end of the case and remained
isolated. Entrance and exit block were demonstrated in all veins.
Post ablation Electroanatomic mapping:
Once ablation was completed, the EAM of the LA was done again in sinus rhythm with excellent demarcation of LA myocardium and isolated antral tissue. There was no significant scarring noted in the LA.
The JOHN PAUL had healthy signals and was not isolated.
Procedure End
ICE study was done again that showed no epicardial accumulation. No complications noted.
Following the completion of the EP study, catheters were removed.
(Patient had a hx of Vasectomy and Protamine was not given). The sheaths were removed and hemostasis achieved with VASCADE and manual compression after acceptable ACT is achieved.
Left atrial Pressure:
Mean LA pressure was 11mmHg
Estimated Blood loss:
<10 cc
Specimens Removed:
None.
Implants / Devices:
None
Urine output:
None
Packs / Drains/ Tubes:
None
Instrument / Sponge Count Correct:
Yes
Complications of the Procedure:
None
Condition of Patient at Time of Transfer:
Hemodynamically stable with no neurological or vascular compromise.
Summary:
Successful atrial fibrillation ablation with Pulsed Field approach for pulmonary vein isolation.
Figures from the Procedure:
Figure 1: The electroanatomic mapping (EAM) of the left atrium with bipolar voltage (purple indicates normal electrical activity with mckenzie as no myocardial muscle electric activity indicating a line of block or scar.
[2024-04-12 15:03] LABS: Glucose - Point of Care 138 mg/dl (70-99)
--- NOTE | 2024-04-12 16:16 | CM ---
Reviewed chart. Met with Mr. Canales to review discharge plans. He states prior to admission he resides with his spouse in a two story home without any step to enter. He states he has a bedroom/full bathroom on each level. He states prior to
admission he was independent with ambulation and adls. He states he does not have nay DME but a Blood pressure machine. He states he has a prescription plan and uses [facility]. The discharge plan is to return home with his spouse when
medically stable.
[2024-04-12] MEDS: TYLENOL 650 MG PO ×2 (17:00→23:14)
--- NOTE | 2024-04-12 19:03 | PTCARENOTE ---
Pt received post ablation. Telemetry shows sinus rhythm @80's, SBP 140-160. Right femoral vein site with dry and intact dressing, no sign of bleeding or hematoma. Pt OOB after bedrest ended without problem. Pt passing urine well.
[2024-04-12] MEDS: ELIQUIS 5 MG PO (19:59)
[2024-04-12] MEDS: COREG 25 MG PO (19:59)
[2024-04-12] MEDS: LIPITOR 20 MG PO (23:06)
[2024-04-12] MEDS: ANESTHETIC LOZENGE 1 LOZENGE PO (23:14)
--- NOTE | 2024-04-13 00:35 | PTCARENOTE ---
Pt received at change of shift. Sinus Arrhythmia on tele with HR 70s-90s. R groin site c/d/i with no sign of hematoma. Pt endorses headache 3/10, Tylenol administered per order. Ambulating independently in room without difficulty. Plan of care
discussed and pt. verbalizes understanding. Can make needs known. Call perales within reach.
[2024-04-13 03:57] VITALS: BP 135/63
[2024-04-13 04:32] LABS: Hematocrit 33.3 % (39.0-52.0); Hemoglobin 12.2 g/dL (13.0-18.0); Mean Corp Hgb Conc. 36.6 g/dL (33.0-37.0); Mean Corpuscular Hgb 33.6 pg (27.0-31.0); Mean Corpuscular Volume 91.7 fL (80.0-94.0); Mean Platelet Volume 11.6 fL (7.4-10.4); Platelet Count 284 10^3/uL (130-400); Red Blood Cell Count 3.63 10^6/uL (4.70-6.10); Red Cell Dist. Width 13.2 % (11.5-14.5); White Blood Cell Count 12.3 10^3/uL (4.8-10.8)
[2024-04-13 05:05] LABS: Blood Urea Nitrogen 17 mg/dl (9-20); Calcium 9.2 mg/dl (8.4-10.2); Carbon Dioxide 21 mmol/L (22-30); Chloride 103 mmol/L (98-107); Estimated Creatinine Clearance > 125 ml/min; Glucose 171 mg/dl (70-99); Magnesium 1.7 mg/dl (1.6-2.3); Potassium 4.6 mmol/L (3.5-5.1); Sodium 136 mmol/L (135-145); eGFR > 60.00
[2024-04-13 07:40] VITALS: BP 132/54
[2024-04-13] MEDS: NORVASC 5 MG PO (08:40)
[2024-04-13] MEDS: DIOVAN 320 MG PO (08:40)
[2024-04-13] MEDS: ALDACTONE 25 MG PO (08:41)
[2024-04-13] MEDS: ORETIC PO (08:41)
[2024-04-13] MEDS: COREG 25 MG PO (08:41)
[2024-04-13] MEDS: ELIQUIS 5 MG PO (08:41)
[2024-04-13] MEDS: ORETIC 25 MG PO (08:43)
--- NOTE | 2024-04-13 09:40 | W.PN.CARDCBS ---
Addendum entered and electronically signed by Kameron Gerardo MD 04/13/24 10:28:
Patient seen and examined in collaboration with BEAM SAW OPERATOR; agree with below.
-Patient stable status-post PVI yesterday.
-Medication adjustments as per primary EP Media Planner.
-Plan to discharge to home today; outpatient follow-up with cardiology.
Original Note:
Today's Communication / Plan
-
STOP diltiazem, losartan, hydralazine
START amlodipine, valsartan/hct
monitor bp
if stable, d/c home
Impression / Plan
-
PCP: Anahi Hayward MD
CDY: Mynor Hoffman MD
68 y/o, PMH sig for recurrent symptomatic PAF. [id number], maintained on eliquis. Also with uncontrolled HTN and intolerant to hydralazine d/t headaches.
Presented to EP lab, now s/p PFA.
IMPRESSION:
PAF, s/p PFA, 04/12/24
Uncontrolled HTN
PreDM
Asthma
HLD
Bladder CA (2004)
PLAN:
Groin site stable
Tele- NSR w/PACs, 70s
OOB ambulating
Eliquis resumed last evening
BP modestly elevated 150-170s since arrival
will stop diltiazem, losartan, and hydralazine
New start amlodipine 5mg/d and valsartan/HCT 320/25mg daily
first doses today- will monitor BP after and if stable will continue at home
Followup at [facility] arranged
home today if BP stable
Progress Note - Media Planner
Subjective
Date of Service: April 13, 2024
Denies cp/palps/dyspnea
oob ambulating
groin site without pain
Objective
Labs:
04/13/24 03:57
04/13/24 03:57
Labs
Hgb 12.2 g/dL (13.0-18.0) L 04/13/24 03:57
Hct 33.3 % (39.0-52.0) L 04/13/24 03:57
Plt Count 284 10^3/uL (130-400) 04/13/24 03:57
Sodium 136 mmol/L (135-145) 04/13/24 03:57
Potassium 4.6 mmol/L (3.5-5.1) 04/13/24 03:57
BUN 17 mg/dl (9-20) 04/13/24 03:57
Creatinine 0.6 mg/dL (0.7-1.3) L 04/13/24 03:57
Glucose 171 mg/dl (70-99) H 04/13/24 03:57
Vital Signs and I&O:
Vital Signs
Temp Pulse Resp BP Pulse Ox
98 F 79 20 132/54 96
04/13/24 07:41 04/13/24 08:40 04/13/24 07:41 04/13/24 08:40 04/13/24 07:41
Vital Signs
Temp Pulse Resp BP Pulse Ox
98 F 79 20 132/54 96
04/13/24 07:41 04/13/24 08:40 04/13/24 07:41 04/13/24 08:40 04/13/24 07:41
Intake & Output
04/11/24 04/12/24 04/13/24 04/14/24
06:59 06:59 06:59 06:59
Intake Total 1460 / 1460 480 / 480
Balance 1460 / 1460 480 / 480
Physical Exam
Physical Exam
AAOx3, MAEE 5/5
RRR S1 S2 no murmurs
CTA bilat, non labored
soft abd, + bs
right groin site without ht/bleeding, non tender
bilat extremities w/palpable distal pulses, no edema
--- NOTE | 2024-04-13 11:13 | PTCARENOTE ---
RN and AUTO MECHANICS INSTRUCTOR reviewed patients new medication regimen with patient at the bedside. Pt may go home this afternoon if blood pressures remain within normal limits. Patient cath site c/d/i. Call perales within reach.
[2024-04-13 11:18] VITALS: BP 152/64
[2024-04-13 11:45] VITALS: BP 156/71
--- NOTE | 2024-04-13 11:48 | W.DS.TRANS ---
Addendum entered and electronically signed by CM Marsh 04/13/24 12:40:
ADDENDUM: carvedilol incorrectly entered during initial med reconciliation.
correct dose of carvedilol is 12.5mg BID.
adjusted in home med rec.
Original Note:
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
-
Discharge Instructions:
Discharge Diagnosis/Procedures Afib post ablation
Diet Low Cholesterol,Low Sodium
Driving Restrictions No driving for 24 hours
Instructions:
Stand-Alone Forms: DC Instructions- Cath/EP Lab
Changes to Home Medications: Yes
Discharge Medications:
DC Medications w/original date entered in [employer]
atorvastatin 20 mg tablet 20 mg PO HS High Cholesterol 03/07/24
carvedilol 25 mg tablet 25 mg PO BID Blood Pressure 03/07/24
therapeutic multivitamin 1 tab PO DAILY Supplement 03/07/24
apixaban 5 mg tablet (Eliquis) 5 mg PO BID #60 tabs 03/09/24
fluticasone propionate 110 mcg/actuation HFA aerosol inhaler 110 mcg inhalation DAILY 04/12/24
spironolactone 25 mg tablet 25 mg DAILY 04/12/24
amlodipine 5 mg tablet 5 mg PO DAILY #90 tabs 04/13/24
valsartan 320 mg-hydrochlorothiazide 25 mg tablet 1 tab PO DAILY #90 tabs 04/13/24
Home Medication Changes
STOP diltiazem, losartan, hydralazine
START amlodipine, valsartan/hct
Pending Results: No
--- NOTE | 2024-04-13 13:00 | PTCARENOTE ---
Pt seen by and Dominique Jones, KADY. BP medications changed, pt has monitor at home to continue recording values. Discharge instructions reviewed with pt and his regarding medications and their possible side effects, wound care, activity
and driving guidelines, reporting cares and concerns and follow up appts. Excellent understanding taught back to this RN. Carvedilol order changed to 12.5mgs BID as previously, per Dominique Jones, KADY. Telemetry and IV device removed. Pt escorted out
via wheelchair and discharged to home.
== END 2024-04-13 13:05 | disposition home or self-care (01) ==
LOC: CATH 07:35
PROVIDERS: Nurse Practitioner Adult Health; ATTENDING PHYSICIAN Internal Medicine Cardiovascular Disease; FAMILY PHYSICIAN Internal Medicine; OTHER PHYSICIAN Internal Medicine
DX: I48.0 Paroxysmal atrial fibrillation (principal); I10 Essential (primary) hypertension; R73.03 Prediabetes; J45.909 Unspecified asthma, uncomplicated; E78.5 Hyperlipidemia, unspecified; Z85.51 Personal history of malignant neoplasm of bladder; Z87.891 Personal history of nicotine dependence; Z79.01 Long term (current) use of anticoagulants
CPT/HCPCS: C1732; C1894; C1730; C1892; C1759; 80048; 82962; 83735; 85027; 85347; 86900; 86901; 93005; 93656; C1733; C1760; C1766

== ENCOUNTER → 2024-04-18 10:36 | Outpatient (REF) | payer MEDICARE, OTHER, SELFPAY | LOC: HWRAD 10:36 | PROVIDERS: ATTENDING PHYSICIAN Nurse Practitioner; FAMILY PHYSICIAN Internal Medicine | DX: I10 Essential (primary) hypertension (principal) | CPT/HCPCS: 76775 ==

== ENCOUNTER → 2024-07-19 13:49 | Outpatient (REF) | payer MEDICARE, OTHER, SELFPAY | LOC: DHSLP 13:49 | PROVIDERS: ATTENDING PHYSICIAN Internal Medicine Critical Care Medicine; FAMILY PHYSICIAN Internal Medicine | DX: G47.61 Periodic limb movement disorder (principal); R06.83 Snoring | CPT/HCPCS: 95810 ==